=== PATIENT | female | born 1995 | race Caucasian/White ===

== ENCOUNTER 2020-02-04 00:25 | Emergency (ER) | payer OTHER ==
[~2020-02-04] VITALS: Ht 160 cm; Wt 92.5 kg
[~2020-02-04 00:25] MED LIST: IBUP-2213 PO; PREN-380 PO
[2020-02-04 00:44] VITALS: BP 119/59
[2020-02-04 01:44] LABS: BASOPHILS % (AUTO) 0.4 % (0.0-2.0); EOSINOPHILS # (AUTO) 0.2 K/uL (0-0.4); EOSINOPHILS % (AUTO) 2.7 % (0.0-4.0); HEMATOCRIT 27.5 % (36-48); HEMOGLOBIN 8.8 g/dL (12.0-16.0); LYMPHOCYTES # (AUTO) 2.5 K/uL (2.5-16.5); LYMPHOCYTES % (AUTO) 29.8 % (20.5-51.1); MEAN CORPUSCULAR HEMOGLOBIN 28 pg (27-31); MEAN CORPUSCULAR HGB CONC 32 g/dL (33-37); MEAN CORPUSCULAR VOLUME 85.8 fL (80-94); MONOCYTES # (AUTO) 0.4 K/uL (0.8-1.0); NEUTROPHILS # (AUTO) 5.1 K/uL (1.8-7.7); NEUTROPHILS % (AUTO) 62.1 % (42.2-75.2); PLATELET COUNT (AUTO) 245 K/uL (140-450); RED BLOOD CELL COUNT(AUTO) 3.21 MIL/uL (4.20-5.40); RED CELL DISTRIBUTION WIDTH 16.4 % (11.6-13.7); WHITE BLOOD COUNT (AUTO) 8.2 K/uL (4.8-10.8)
[2020-02-04 01:58] LABS: ANION GAP 9.5 (8-16); CARBON DIOXIDE 27.9 mmol/L (21-32); CREATININE 0.8 mg/dL (0.6-1.3); POTASSIUM 4.4 mmol/L (3.5-5.1)
[2020-02-04 02:03] LABS: ALBUMIN 2.5 g/dL (3.4-5.0); TOTAL BILIRUBIN 0.2 mg/dL (0.0-1.0)
[2020-02-04 02:07] LABS: APPEARANCE,URINE SL CLOUDY (CLEAR); BILIRUBIN,URINE NEGATIVE (NEGATIVE); BLOOD, URINE 3+ (NEGATIVE); COLOR,URINE DARK YELLOW (YELLOW); LEUKOCYTE ESTERASE ,URINE 1+ (NEGATIVE); NITRITE, URINE NEGATIVE (NEGATIVE); UGLUCOSE NEGATIVE (NEGATIVE)
[2020-02-04 02:26] LABS: RBC,URINE >100 /HPF (0-5); WBC,URINE 16-25 (MOD) /HPF (0-5)
[2020-02-04 05:15] VITALS: BP 115/67
== END 2020-02-04 05:15 | disposition home or self-care (01) ==
LOC: MED 00:25
DX: O26.891 Other specified pregnancy related conditions, first trimester (principal); O80 Encounter for full-term uncomplicated delivery; Z79.899 Other long term (current) drug therapy
CPT/HCPCS: 36415; 76830; 80053; 81001; 85025; 85610; 85730; 86900; 86901; 87086; 99284; Q0092; 81025